=== PATIENT | female | born 1990 | race Caucasian/White ===

== ENCOUNTER 2018-02-14 11:53 | Inpatient (IN) | payer OTHER ==
[~2018-02-14] VITALS: Ht 154.9 cm; Wt 63.0 kg
[~2018-02-14 11:53] MED LIST: HYDROCODON-ACE1 EAC7 PO; IBUPROFEN 200200 M1 PO; IBUPROFEN 600600 M1 PO; REGLAN 10 MG TA10 MG PO; ZOLOFT50 MG PO
[2018-02-14 11:58] VITALS: BP 124/61
[2018-02-14 12:27] LABS: HEMATOCRIT 38.2 % (37.0-47.0); HEMOGLOBIN 13.1 gm/dL (12.0-15.0); MCH 28.3 pg (26.0-34.0); MCHC 34.4 g/dL (28.0-37.0); MCV 82.2 fL (80.0-100.0); MPV 9.7 fl. (7.2-11.1); NUCLEATED RBCS 0 /100WBC; PLATELET COUNT* 168 thou/uL (150-400); RBC 4.64 mil/uL (4.20-5.00); RDW-CV 15.6 % (10.5-14.5); WBC 15.3 thou/uL (4.0-11.0)
[2018-02-14 12:31] LABS: CREATININE 0.8 mg/dL (0.6-1.3)
[2018-02-14 12:35] LABS: TOTAL BILIRUBIN 0.5 mg/dL (<0.1-1.0); TOTAL PROTEIN 7.4 g/dL (6.4-8.2)
[2018-02-14 12:36] LABS: POTASSIUM 2.6 mmol/L (3.5-5.1)
[2018-02-14 13:05] LABS: ABSOLUTE LYMPHOCYTES 0.5 thou/uL (0.8-5.3); ABSOLUTE MONOCYTES 0.9 thou/uL (0.0-1.2); ABSOLUTE NEUTROPHILS 13.9 thou/uL (1.6-8.1); PLATELET ESTIMATE ADEQUATE
[2018-02-14 13:40] LABS: URINE BILIRUBIN NEGATIVE (Negative); URINE BLOOD 1+ (Negative); URINE CLARITY CLEAR; URINE COLOR YELLOW; URINE GLUCOSE-RANDOM NEGATIVE (Negative); URINE KETONES 1+ (Negative); URINE PROTEIN 2+ (Negative)
[2018-02-14 13:41] LABS: URINE LEUKOCYTES-REFLEX 2+ (Negative); URINE NITRITE-REFLEX POSITIVE (Negative)
[2018-02-14 13:46] LABS: BACTERIA-REFLEX >30 Many /HPF (None Seen); CASTS None Seen /LPF (None Seen); CRYSTALS None Seen /LPF (None Seen); MUCUS None Seen strn/LPF (None Seen); SQUAMOUS 0-3 Few /LPF (0-3); URINE RBC 3-10 Few /HPF (0-2)
[2018-02-14 15:47] VITALS: BP 121/78
[2018-02-14 16:05] VITALS: BP 118/80
--- NOTE | 2018-02-14 16:05 | NUR ---
PATIENT ARRIVED FROM ER AT THIS [facility]. PATIENT SETTLED TO ROOM. HISTORY, ASSESSMENT AND VITALS COMPLETED AND DOCUMENTED. CALL LIGHT WITHIN REACH. WILL CONTINUE TO MONITOR.
--- NOTE | 2018-02-14 18:44 | NUR ---
PATIENT RESTING IN BED. PATIENT HAS HAD COMPLAINTS OF GENERAL ACHINESS AND HEADACHE, TREATED ADEQUATELY WITH MEDICATION. PATIENT GIVEN ZOFRAN X 1 FOR NAUSEA. PATIENT DID TOLERATE REGULAR DINNER. PATIENT STATES SHE IS FEELING MUCH BETTER. PATIENT DENIES ANY NEEDS AT THIS TIME. CALL LIGHT WITHIN REACH. WILL CONTINUE TO MONITOR.
[2018-02-14 23:36] VITALS: BP 108/61
--- NOTE | 2018-02-15 05:52 | NUR ---
PT SLEPT WELL OVERNIGHT. NEW IV R WRIST THIS SHIFT. RECEIVED IV ABX AND IV K INFUSING VERY SLOWLY DUE TO PT CO BURNING AND DISCOMFORT. AM LABS TO BE DRAWN. UP WITH SBA TO TO BR TO VOID YELLOW URINE, URINE STRAINED BUT NO STONE RETRIEVED.TOLERATED SMALL AMOUNT REGULAR DIET AT HS WITH SMALL AMOUNT NAUSEA BUT NO EMESIS. ABLE TO USE CALL LITE AND MAKE NEEDS KNOWN.
[2018-02-15 07:17] LABS: CALCIUM 7.9 mg/dL (8.5-10.1); CREATININE 0.7 mg/dL (0.6-1.3); POTASSIUM 3.1 mmol/L (3.5-5.1)
[2018-02-15 07:22] LABS: HEMATOCRIT 30.1 % (37.0-47.0); MCH 28.8 pg (26.0-34.0); MCHC 34.6 g/dL (28.0-37.0); MCV 83.3 fL (80.0-100.0); MPV 9.8 fl. (7.2-11.1); RBC 3.61 mil/uL (4.20-5.00); RDW-CV 15.3 % (10.5-14.5); WBC 9.4 thou/uL (4.0-11.0)
[2018-02-15 07:24] LABS: HEMOGLOBIN 10.4 gm/dL (12.0-15.0)
[2018-02-15 08:00] VITALS: BP 113/67
[2018-02-15 14:21] LABS: CALCIUM 7.8 mg/dL (8.5-10.1); CREATININE 0.7 mg/dL (0.6-1.3); MAGNESIUM 1.5 mg/dL (1.8-2.4)
--- NOTE | 2018-02-15 16:33 | NUR ---
SW spoke with pt nurse; no dc needs anticipated. Pt to dc home with and family support.
--- NOTE | 2018-02-15 18:22 | NUR ---
PATIENT RESTING IN BED. PATIENT IS UP AD TRACEY IN ROOM. PATIENT HAS BEEN AFEBRILE. NO COMPLAINTS OF NAUSEA OR PAIN TODAY. POTASSIUM AND MAGNESIUM REPLACED PER PROTOCOL. PATIENT HAS GOOD APPETITE. PATIENT STATES SHE IS STARTING TO FEEL BETTER. PATIENT DENIES ANY NEEDS AT THIS TIME. CALL LIGHT WITHIN REACH. WILL CONTINUE TO MONITOR.
[2018-02-15 23:30] VITALS: BP 117/72
[2018-02-16 05:13] LABS: MAGNESIUM 1.6 mg/dL (1.8-2.4)
[2018-02-16 05:21] LABS: POTASSIUM 4.2 mmol/L (3.5-5.1)
--- NOTE | 2018-02-16 06:17 | NUR ---
PATIENT SLEPT MOST OF THE NIGHT. IV FLUIDS CONTINUE TO INFUSE AT 150 ML/HR. PATIENT WAS GIVEN PAIN MEDICINE ONCE FOR A HEADACHE WITH GOOD RELIEF. PATIENT IS POSSIBLY GOING HOME TODAY. WILL CONTINUE TO MONITOR.
[2018-02-16 08:00] VITALS: BP 118/79
[2018-02-16 15:53] VITALS: BP 115/78
[2018-02-16] MEDS ORDERED: IBUPROFEN 600600 M1 PO (16:31)
--- NOTE | 2018-02-16 16:48 | NUR ---
PT UP IN ROOM WITH STEADY GAIT. IV CLOTTED OFF THIS AM. TOLERATING PO WELL. PT PUMPING BREASTMILK FOR INFANT. ICE OFFERED FOR STORAGE BUT PT PREFERS TO DUMP SHE HAS OVER SUPPLY. PT DENIES PAIN OR N/V
--- NOTE | 2018-02-16 17:15 | NUR ---
CT RESULTS CALLED TO DR HERBERT. PT WANTS TO GO HOME TONIGHT. SURGERY CONSULTED. ORDERS RECEIVED
[2018-02-16 19:02] LABS: ALBUMIN 2.1 g/dL (3.4-5.0); DIRECT BILIRUBIN 0.1 mg/dL (<0.1-0.3); TOTAL BILIRUBIN 0.2 mg/dL (<0.1-1.0); TOTAL PROTEIN 5.1 g/dL (6.4-8.2)
[2018-02-17] VITALS (20 sets, daily range): BP systolic 110–149; BP diastolic 73–107
[2018-02-17 00:52] LABS: BE 1.5 mmol/L (-2 to +3); HCO3 26.2 mmol/L (22.0-26.0); PCO2 41.6 mmHg (35.0-45.0); pH 7.417 (7.340-7.450)
--- NOTE | 2018-02-17 02:59 | NUR ---
ASSESSMENT COMPLETE. MIDNIGHT VITALS SHOWED LOW O2 SAT IN 60'S. PT PUT ON 6L PER NC TO KEEP SATS GREATER THAN 92. PT DENIES SOA AND PAIN. DR NOTIFIED, STAT ABG ORDERED WITH CRITICAL pO2 AT 42. ORDERED STAT CTA TO RULE OUT PE. O2 BUMPED UP TO 10L PER NC AND PATIENT TRANSFERED TO ICU. REPORT GIVEN TO ICU NURSE.
--- NOTE | 2018-02-17 03:55 | NUR ---
RECEIVED REPORT FROM PATTY NAJERA @ 0205, PT ARRIVED ONTO UNIT AT 0208 VIA WHEELCHAIR AND O2 10L HFNC FROM CT SCAN. PT A+O*4, C/O PAIN TO CHEST WITH INHALATION, THEN FOLLOWED BY A COUGH. CTA COMPLETED TO R/O PULMONARY EMBOLISM. REPORT FAXED TO THE UNIT AT 0232. SEE RESULT IN CHART. DR HERBERT NOTIFIED OF RESULT: NO PULM. EMBOLI. ORDERS NOTED TO ADMIN IV VANC 1GM AND CONSULT PULMONARY MEDICINE AND INFECTIOUS DISEASE. CONSULTS CALLED IN, MESSAGES LEFT [facility] ANSWERING SERVICE. 02 TITRATED DOWQN TO 4L, HUMIDIFIER IN USE. SPO2 REMAINS ABOVE 94%. PT ABLE TO USE COMMODE, C/O FEELING OUT OF BREATH "WITH THAT SMALL ACTIVITY." REMAINS NPO FOR ABD US, R/O GALLSTONES
[2018-02-17 04:42] LABS: HEMATOCRIT 30.6 % (37.0-47.0); HEMOGLOBIN 10.4 gm/dL (12.0-15.0); MCH 28.4 pg (26.0-34.0); MCV 83.5 fL (80.0-100.0); MPV 9.8 fl. (7.2-11.1); RBC 3.66 mil/uL (4.20-5.00); RDW-CV 15.6 % (10.5-14.5); WBC 8.1 thou/uL (4.0-11.0)
[2018-02-17 05:05] LABS: CREATININE 0.6 mg/dL (0.6-1.3); MAGNESIUM 1.4 mg/dL (1.8-2.4); TOTAL BILIRUBIN 0.3 mg/dL (<0.1-1.0); TOTAL PROTEIN 5.6 g/dL (6.4-8.2)
[2018-02-17 05:39] LABS: POTASSIUM 2.9 mmol/L (3.5-5.1)
--- NOTE | 2018-02-17 09:34 | NUR ---
2175 ASSUMED CARE OF PATIENT. PLEASE SEE DOCUMENTED ASSESSMENT. PT IS ON 4LPM HIGH FLOW CANNULA AT THIS TIME. DR DURAND TO SEE PATIENT.
[2018-02-17 09:51] LABS: BE 3.6 mmol/L (-2 to +3); PCO2 36.5 mmHg (35.0-45.0); PO2 71.9 mmHg (75.0-100.0); pH 7.487 (7.340-7.450)
[2018-02-17 14:45] LABS: ABSOLUTE EOSINOPHILS 0.2 thou/uL (0.0-0.7); ABSOLUTE LYMPHOCYTES 1.1 thou/uL (0.8-5.3); ABSOLUTE MONOCYTES 0.7 thou/uL (0.0-1.2); ABSOLUTE NEUTROPHILS 2.8 thou/uL (1.6-8.1); BASOPHILS 0.6 %; EOSINOPHILS 4.9 %; HEMATOCRIT 34.4 % (37.0-47.0); HEMOGLOBIN 11.8 gm/dL (12.0-15.0); LYMPHOCYTES 22.8 %; MCH 28.3 pg (26.0-34.0); MCHC 34.1 g/dL (28.0-37.0); MCV 82.8 fL (80.0-100.0); MONOCYTES 13.9 %; MPV 9.4 fl. (7.2-11.1); NUCLEATED RBCS 0 /100WBC; PLATELET COUNT* 218 thou/uL (150-400); POLYS 57.8 %; RBC 4.16 mil/uL (4.20-5.00); RDW-CV 15.3 % (10.5-14.5); WBC 4.8 thou/uL (4.0-11.0)
[2018-02-17 14:59] LABS: APTT 30.5 Seconds (25.0-31.3)
[2018-02-17 15:03] LABS: MAGNESIUM 1.8 mg/dL (1.8-2.4); PHOSPHORUS* 3.6 mg/dL (2.5-4.9)
--- NOTE | 2018-02-17 17:15 | NUR ---
PATIENT PROGRESSING TOWARDS GOALS. TITRATED TO ROOM AIR BUT REMAINS SHORT OF AIR WITH EXERTION. LUNGS NOT COARSE. ANTIBIOTICS ADJUSTED BY ID. AFEBRILE. ELECTROLYTES REPLACED. LABS AND CHEST FILM REPEATED WELL ABG. PATIENT IS BREAST PUMPING AND DISCARDING BREAST MILK. FAMILY HAS VISITED
[2018-02-18] VITALS: BP 116/74
[2018-02-18 04:00] VITALS: BP 128/86
[2018-02-18 04:06] LABS: HEMATOCRIT 35.9 % (37.0-47.0); HEMOGLOBIN 12.2 gm/dL (12.0-15.0); MCH 27.9 pg (26.0-34.0); MCV 82.2 fL (80.0-100.0); MPV 9.2 fl. (7.2-11.1); RBC 4.37 mil/uL (4.20-5.00); RDW-CV 15.8 % (10.5-14.5); WBC 6.1 thou/uL (4.0-11.0)
[2018-02-18 04:26] LABS: ALBUMIN 2.6 g/dL (3.4-5.0); CALCIUM 9.1 mg/dL (8.5-10.1); CREATININE 0.7 mg/dL (0.6-1.3); MAGNESIUM 1.8 mg/dL (1.8-2.4); POTASSIUM 3.7 mmol/L (3.5-5.1); TOTAL BILIRUBIN 0.4 mg/dL (<0.1-1.0); TOTAL PROTEIN 7.1 g/dL (6.4-8.2)
[2018-02-18 06:00] VITALS: BP 111/77
--- NOTE | 2018-02-18 06:44 | NUR ---
ASSUMED CARE OF PT FROM [facility] BR[facility]IL[facility]; PROGRESSING TOWARDS GOALS. STILL SHORT OF AIR W/ EXERTION, SPO2 =>94% ON RA. PT DENIES THE SHARP INHALATION PAINS, MILD COUGH, NON-PROD.CONTINUES ON IV ANTIBIOTICS ATC ORDERED, AFEBRILE.LUNGS DIMINISHED. K AND MG WNL; PT PUMPING AND DUMPING BREAST MILK. UP TO BSC, FREQUENT VOIDS. OIL FILTERS INSPECTOR NOTIFIED PCR MRSA RETURNED (+) NARES, ISOLATION CART REQUESTED. PAGED INFECTIOUS DISEASE TO NOTIFY OF LAB RESULT @ 8196; DR NASH [facility] OF [facility], AWAITING CALL BACK. PT NOTIFIED.
[2018-02-18 09:25] VITALS: BP 132/87
--- NOTE | 2018-02-18 09:46 | NUR ---
PATIENT DENIES DISTRESS UP IN ROOM. DENIES PAIN. TRANSFERED TO RM 307.
--- NOTE | 2018-02-18 10:01 | NUR ---
PATIENT CAME TO THE FLOOR FROM THE ICU VIA WHEELCHAIR IN STABLE CONDITION. NO COMPLAINTS OF ANY KIND. PATIENT IS UP AD TRACEY, ALERT AND ORIENTED VERY PLEASANT. PATIENT IS ANXIOUS TO BE DISCHARGED AND TO GO HOME.
[2018-02-18 12:14] VITALS: BP 132/87
[2018-02-18] MEDS ORDERED: AUGMENTIN 875-1 EACH PO (12:14)
--- NOTE | 2018-02-18 12:38 | NUR ---
PATIENT IS ALERT AND ORIENTED TODAY VERY PLEASANT. VITAL SIGNS STABLE ON ROOM AIR. PATIENT IS UP AD TRACEY IN ROOM. PATIENT IS BEING DISCHARGED TO HOME, DISCHARGE INSTRUCTIONS GIVEN, PRESCRIPTIONS GIVEN AND QUESTIONS ANSWERED FOR PATIENT AND MOTHER. PATIENT AMBULATED OUT TO HOME WITH MOTHER.
[2018-02-18 12:48] VITALS: BP 132/87
--- NOTE | 2018-02-20 14:21 | CON ---
[address] [address] CONSULTATION Name: DARRELL SARKAR Room: [address] IN M.R.#: [id number] Admission: 02/14/18 Attend Phys: Jeremiah Calloway Discharge: 02/18/18 Date of : 89 Report #: [id number] THIS REPORT FOR: //name// CC: ANDREE physician/PCP Mariely Rojo REQUESTING PHYSICIAN: Oscar Parkinson MD REASON FOR CONSULTATION: Hypoxia, pulmonary infiltrates. DISCUSSION: The patient is a pleasant 27-year-old woman who has prior history of known pulmonary disease. She is a rare cigarette smoker. She presented to the Emergency Department initially on 02/14/2018 with several days of nausea and vomiting. Prior to that, she had been seen in the ER at [facility] for kidney stone. She was febrile, felt dehydrated. She was not having any pulmonary complaints at that time. That is when seen in the ED, she did have a fever. Chest x-ray was clear of infiltrates. Additional fluids were given. She has been seen by the general surgeons. Possibility some of her nausea and vomiting were related to cholelithiasis. She was initially febrile on admission up to 101.3, but her temperatures have improved. Yesterday evening, did have a drop in her O2 saturations. At one point it was up to 10 liters per nasal cannula high flow. Given the change in her O2 needs, CT angiogram was done of her chest. She was transferred to the Intensive Care Unit. No PE was seen. However, imaging studies did reveal the development of lower lobe infiltrates, all consistent with pneumonia. At the time I saw her in the ICU this morning, she was alert, cooperative and feeling good, in fact asking when she could go home. She had had some chest pain, which was worse when she coughed. That is already improved. She has had some cough, but no sputum production. No hemoptysis. She has not had pneumonia in the past. She notes she may occasionally smoke when she is out and has a drink, but it is rare. She has not had any sustained cigarette smoking. No smokers at home. No one at home has been ill. She does have a 3-month-old, had a . Has been . PAST MEDICAL HISTORY: Remarkable for 2 C-sections, the last one just 3 months ago at [facility]. Kidney stones as noted. Does have urinary tract infection. History of depression. HOME MEDICATIONS: P.r.n. pain medication as well as Zoloft and ibuprofen. SOCIAL HISTORY: She is . Two childrens are noted. Dog at home. [place] [id number] CONSULTATION Name: ANTONINADARRELL Room: [address] M.R.#: [id number] Admission: 02/14/18 Attend Phys: Jeremiah Calloway Discharge: 02/18/18 Date of : 89 Report #: [id number] FAMILY HISTORY: Negative for lung problems. REVIEW OF SYSTEMS: ROS was done. No positives as above. No syncopal episodes at home. Had been having the abdominal pain as well as nausea and vomiting. No nausea, vomiting over the last 24 hours. No difficulty swallowing. She denies any syncopal episodes. Shortness of breath is much improved. The pain is improved. She has not had any hemoptysis. No issues with lower extremity edema. PHYSICAL EXAMINATION: GENERAL APPEARANCE: A woman who looks stated age. Alert, cooperative, sitting up in bed. His O2 running via nasal cannula. O2 saturations are in the high 90s. Heart rates in the 70s. She is alert, cooperative, speaking in full sentences and is in no acute distress. HEENT: Head is normocephalic. Sclerae are nonicteric. Mucous membranes are moist. NECK: Negative for adenopathy. No JVD is noted. HEART: Regular rate. No S3 is heard. LUNGS: Reveal a few bibasilar crackles. No wheezing is heard. No E to A changes. No dullness to percussion. Excursion is equal. No subcutaneous emphysema. ABDOMEN: Large, soft. EXTREMITIES: She has no clubbing. Lower extremities are negative for edema. No calf tenderness. SKIN: Warm and dry. NEUROLOGIC: She is alert and oriented x 3. LABORATORY AND X-RAY FINDINGS: White count on admission was 15,300, down to 8100 this morning. Hemoglobin 10.4, hematocrit of 30.6, platelets are normal. HCG was normal. On admission, her BUN was 17 with a creatinine of 0.8. This morning, BUN is 5, creatinine 0.6. Potassium this morning 2.9, magnesium 1.4. Lipase was 49, total bilirubin was normal. Transaminases were not elevated. Alkaline phosphatase was 85. Stone analysis is pending. Arterial blood gas done last night, pH 7.42, pCO2 of 42, pO2 42, bicarbonate 26 with a saturation 82%. Question of that is in a venous gas. UA on admission was abnormal with nitrite positive, many bacteria and white cells. Urine culture is growing E. coli. Pansensitive Blood cultures done on admission, no growth. Films were reviewed. Her initial chest x-ray which was a portable study done when she came in was negative for infiltrates. She actually had 2 CT chest done. done without contrast does show the consolidative changes, especially in the lower lobes. Some additional noted in the upper lobes. A CT angiogram was done early this morning. Again, negative for PE. The exam was somewhat limited. Continues to show consolidative changes. Very small pleural effusions. IMPRESSION: 1. Pulmonary infiltrates most consistent with pneumonia. [place] [id number] CONSULTATION Name: SAMUEL SARKARN Room: [address]#: [id number] Admission: 02/14/18 Attend Phys: Jeremiah Calloway Discharge: 02/18/18 Date of : 89 Report #: [id number] an aspiration pneumonia. She did have lot of vomiting that brought her to the hospital. 2. Hypoxic respiratory failure, improving. 3. Urinary tract infection. May be related to stones. 4. Recent section, currently on state. 5. Mild anemia, not unexpected given her recent and delivery. RECOMMENDATIONS: 1. An Infectious Disease Service has been consulted. We will defer antibiotic management to them. Increase activity. 2. Change neb treatments to q.i.d. while awake. 3. Increase activity. 4. Wean O2. 5. If improvement continues, may hopefully be able to discharge within the next several days. 6. Okay with me to transfer out of the Intensive Care Unit. <ELECTRONICALLY SIGNED> By: Rebekah Rob MD 02/20/18 1421 [id number] Rob MD /nt
[2018-02-22 12:05] LABS: STONE CALCIUM PHOSPHATE 98 % (()); STONE COLOR Tan (()); STONE SIZE 4x2x1 mm (()); STONE WEIGHT 8.1 mg (())
== END 2018-02-18 12:49 | disposition home or self-care (01) | DRG 871 ==
LOC: M.ERS 11:53 → M.TBA-ER 14:07 → M.3W 14:07 → M.ICU 02-17 02:01 → M.3W 02-18 09:49
PROVIDERS: Emergency Medicine; Family Medicine; ADMIT Internal Medicine
DX: A41.9 Sepsis, unspecified organism (principal); J96.01 Acute respiratory failure with hypoxia; J69.0 Pneumonitis due to inhalation of food and vomit; E43 Unspecified severe protein-calorie malnutrition; N39.0 Urinary tract infection, site not specified; D50.9 Iron deficiency anemia, unspecified; N20.0 Calculus of kidney; B96.20 Unspecified Escherichia coli [E. coli] as the cause of diseases classified elsewhere; F32.9 Major depressive disorder, single episode, unspecified; E87.6 Hypokalemia; E83.42 Hypomagnesemia; F17.210 Nicotine dependence, cigarettes, uncomplicated; Z68.26 Body mass index [BMI] 26.0-26.9, adult; Z79.2 Long term (current) use of antibiotics; Z79.899 Other long term (current) drug therapy